=== PATIENT | male | born 1990 | race American Indian/Alaskan Native ===

== ENCOUNTER 2017-04-25 15:33 | Emergency (ER) | payer SELFPAY ==
[2017-04-25 15:50] VITALS: BP 146/77
--- NOTE | 2017-04-25 16:36 | Emergency Department Report ---
Chief Complaint: Chest Pain Stated Complaint: HEADACHE/CHEST PAIN - HPI History of Present Illness: 27-year-old male presents with headache and chest pain for several weeks. - Exam Vital Signs: Vital Signs 04/25/17 15:47 Temperature 98.4 F Pulse Rate 34 L Respiratory 18 Rate Blood Pressure 146/77 O2 Sat by Pulse 99 Oximetry MSE screening note: Focused history and physical exam performed. Due to findings the following was ordered: ED Disposition for MSE Condition: Stable Referrals: PRIMARY CARE, [Primary Care Provider] - 3-5 Days
[2017-04-25] MEDS ORDERED: MOTRIN PO ONE (16:58)
--- NOTE | 2017-04-25 17:04 | Emergency Department Report ---
HPI - General Chief Complaint: Chest Pain Time Seen by Provider: 04/25/17 16:46 - HPI HPI: 27-year-old [place] male comes in for complaint of chest pain and headache that has been intermittent for over a month now pink little more consistent for the last week. He last took pain medicine about a week ago. Patient denies any cough or flulike symptoms. He reports that the pain is on the top and right of his head for one week he took Tylenol which helped some denies nausea vomiting worse with movement pain is intermittent in his chest that moves around. In the chest comes from side to side is worse with lying down and after eating. ED Past Medical Hx - Past Medical History Hx Asthma: Yes - Social History Smoking Status: Former Smoker Substance Use Type: None - Medications Home Medications: Home Medications Medication Instructions Recorded Confirmed Last Taken Type Nitrofurantoin Bates/M-Cryst 100 mg PO BID #14 capsule 05/11/16 Unknown Rx [Macrobid CAP] Ibuprofen [Motrin 800 MG tab] 800 mg PO ONCE 10 Days #30 tablet 04/25/17 Unknown Rx Omeprazole 20 mg PO QDAY #30 capsule. 04/25/17 Unknown Rx ED Review of Systems ROS: Stated complaint: HEADACHE/CHEST PAIN Other details as noted in HPI Constitutional: denies: chills, fever Eyes: as per HPI ENT: denies: ear pain, throat pain Respiratory: denies: cough, shortness of breath, wheezing Cardiovascular: chest pain Endocrine: no symptoms reported Gastrointestinal: denies: abdominal pain, nausea, diarrhea Genitourinary: denies: urgency, dysuria Musculoskeletal: denies: back pain, joint swelling, arthralgia Skin: denies: rash, lesions Neurological: headache Physical Exam - Physical Exam Vital Signs: Vital Signs 04/25/17 15:47 Temperature 98.4 F Pulse Rate 34 L Respiratory 18 Rate Blood Pressure 146/77 O2 Sat by Pulse 99 Oximetry General: GENERAL APPEARANCE: Well developed, well nourished, in no acute distress. SKIN: Inspection of the skin reveals no rashes, ulcerations or petechiae. HEENT: The sclerae were anicteric and conjunctivae were pink and moist. Extraocular movements were intact and pupils were equal, round, and reactive to light with normal accommodation. External inspection of the ears and nose showed no scars, lesions, or masses. Lips, teeth, and gums showed normal mucosa. The oral mucosa, hard and soft palate, tongue and posterior pharynx were normal. NECK: Supple and symmetric. There was no thyroid enlargement, and no tenderness , or masses were felt. CHEST: Normal AP diameter and normal contour without any kyphoscoliosis. LUNGS: Auscultation of the lungs revealed normal breath sounds without any other adventitious sounds or rubs. CARDIOVASCULAR: There was a regular rate and rhythm without any murmurs, gallops , rubs. The carotid pulses were normal and 2+ bilaterally without bruits. Peripheral pulses were 2+ and symmetric. ABDOMEN: Soft and nontender with normal bowel sounds. The liver span was approximately 5-6 cm in the right midclavicular line by percussion. The liver edge was nontender. The spleen was not palpable. There were no inguinal or umbilical hernias noted. No ascites was noted. LYMPH NODES: No lymphadenopathy was appreciated in the neck, axillae or groin. MUSCULOSKELETAL: Gait was normal. There was no tenderness or effusions noted. Muscle strength and tone were normal. EXTREMITIES: No cyanosis, clubbing or edema. NEUROLOGIC: Alert and oriented x 3. Normal affect. Gait was normal. Normal deep tendon reflexes with no pathological reflexes. Sensation to touch was normal. ED Course Vital Signs 04/25/17 15:47 Temperature 98.4 F Pulse Rate 34 L Respiratory 18 Rate Blood Pressure 146/77 O2 Sat by Pulse 99 Oximetry Critical care attestation.: If time is entered above; I have spent that time in minutes in the direct care of this critically ill patient, excluding procedure time. ED Disposition Clinical Impression: Chest pain, atypical Headache Qualifiers: Headache type: unspecified Headache chronicity pattern: acute headache Intractability: not intractable Qualified Code(s): R51 - Headache Disposition: DC-01 TO HOME OR SELFCARE Is pt being admited?: No Does the pt Need Aspirin: No Condition: Stable Instructions: Chest Pain (ED) Additional Instructions: Take Tylenol as prescribed. Drink plenty of fluids and follow-up with the provider listed below for further evaluation. Prescriptions: Ibuprofen [Motrin 800 MG tab] 800 mg PO ONCE 10 Days #30 tablet Omeprazole 20 mg PO QDAY #30 capsule. Referrals: ANYI NUNEZ MD [Primary Care Provider] - 3-5 Days BERHANE FREITAS MD [Staff Physician] - 3-5 Days Forms: Work/School Release Form(ED)
== END 2017-04-25 18:11 | disposition home or self-care (01) ==
LOC: ED 15:33
DX: R07.89 Other chest pain (principal); R51 Headache; J45.909 Unspecified asthma, uncomplicated
CPT/HCPCS: 93005; 93010; 99282

== ENCOUNTER 2021-12-14 18:54 | Emergency (ER) | payer SELFPAY ==
[2021-12-14 19:48] VITALS: BP 183/111
== END 2021-12-14 20:41 | disposition left against medical advice (07) ==
LOC: ED 18:54
DX: M25.472 Effusion, left ankle (principal); Z53.21 Procedure and treatment not carried out due to patient leaving prior to being seen by health care provider